=== PATIENT | male | born 2000 | race Two or more races ===

== ENCOUNTER 2022-05-12 02:35 | Emergency (ER) | payer MEDICAID, OTHER ==
[~2022-05-12] VITALS: Ht 175.3 cm; Wt 90.7 kg
--- NOTE | 2022-05-12 02:37 | NUR ---
bibra 59 for OD. narcan 2mg IM and 2mg of IV and IV zofran given RESPIRATORY PRACTITIONER. A, Ox4 on triage. admitted on smoking weed. pt to bed 9, pt awake and alert, no sob/ placed on monitor. vss. pending er provider jacki
[2022-05-12] MEDS ORDERED: ONDANSETRON 4 MG TAB.RAPDIS ONE (02:55)
[2022-05-12] MEDS ORDERED: ONDANSETRON 4 MG TAB.RAPDIS SL ONE (03:00)
[2022-05-12] MEDS ORDERED: NALO4SPR BNOSTRILS (05:46)
--- NOTE | 2022-05-12 06:46 | NUR ---
Patient discharged to home in stable condition. Written and verbal after care instructions given. Patient verbalizes understanding of instruction. IV removed. Catheter intact and site benign. Pressure and 4x4 applied to site. No bleeding noted.
[2022-05-12 07:23] VITALS: BP 139/75
== END 2022-05-12 07:24 | disposition home or self-care (01) ==
LOC: ER 02:38
DX: R40.4 Transient alteration of awareness (principal); T40.601A Poisoning by unspecified narcotics, accidental (unintentional), initial encounter; Y92.89 Other specified places as the place of occurrence of the external cause
CPT/HCPCS: 99283; 82962; Q0162